=== PATIENT | female | born 1940 | race Caucasian/White ===

== ENCOUNTER 2024-06-18 13:43 | Observation (INO) ==
[~2024-06-18 13:43] MED LIST: NS 0.45% 1000 ml BAG 1,000 ML IV SCH; Naloxone 0.4 mg VIAL 0.4 mg/ml 1 ml VIAL IV PRN; Ondansetron 4 mg VIAL 2 MG/ML 2 ml VIAL IV PRN
[2024-06-18] MEDS ORDERED: Tranexamic Acid 1 GM/100ML BAG 2,000 MG/200 ML BAG IV ONE (13:54)
[2024-06-18] MEDS ORDERED: ceFAZolin 2 GM PREMIX 2 GM/50 ML BAG ONE (13:54)
[2024-06-18] MEDS: Acetaminophen IV 1 GM/100ML 1,000 MG/100 ML BAG IV ONE (14:20)
[2024-06-18] MEDS: Lactated Ringers 1000 ml BAG 1,000 ML IV SCH ×2 (14:20→20:46)
[2024-06-18] MEDS: Buffered Lidocaine 1% SYRIN 1 ml INTRADERM ONE (14:20)
[2024-06-18 14:23] LABS: Rapid COVID-19 Molecular Undetected (Undetected)
[2024-06-18] MEDS ORDERED: ROPIVACAINE 5 MG/ML 30 ML BTL (0.5%) ONE (14:34)
[2024-06-18] MEDS ORDERED: Rocuronium 50 mg VIAL 10 mg/ml 5 ml VIAL (50 mg) ONE (15:11)
[2024-06-18] MEDS ORDERED: Lidocaine 2% PF 5 ML VIAL ONE (15:16)
[2024-06-18] MEDS ORDERED: Dexamethasone IV 4 MG/ML VIAL 1 ml VIAL ONE (15:16)
[2024-06-18] MEDS ORDERED: Midazolam 2 mg/2 ml VIAL 1 mg/ml 2 ml VIAL (2 mg) ONE (15:16)
[2024-06-18] MEDS ORDERED: fentaNYL 250 mcg/5 ml 50 MCG/ML 5 ml VIAL (250 MCG) ONE (15:16)
[2024-06-18] MEDS ORDERED: Ondansetron 4 mg VIAL 2 MG/ML 2 ml VIAL ONE (15:16)
[2024-06-18] MEDS ORDERED: Propofol 10 MG/ML 20 ML BTL ONE (15:16)
[2024-06-18] MEDS ORDERED: Magnesium Hydroxide LIQ 30 ML UDC PO PRN (15:47)
[2024-06-18] MEDS ORDERED: Calcium Carb (TUMS) 500 mg CHEW TAB PO PRN (15:47)
[2024-06-18] MEDS ORDERED: Lactulose 30 ml UDC PO PRN (15:47)
[2024-06-18] MEDS ORDERED: Ondansetron ODT 4 mg TAB 4 MG TAB PO PRN (15:47)
[2024-06-18] MEDS ORDERED: Morphine 2 MG/ML SYRINGE IV PRN (15:47)
[2024-06-18] MEDS ORDERED: fentaNYL 100 mcg/2 ml 50 MCG/ML VIAL ONE ×2 (18:40→19:37)
[2024-06-18] MEDS: fentaNYL 100 mcg/2 ml 50 MCG/ML VIAL IV PRN (18:42)
[2024-06-18] MEDS: ceFAZolin 2 GM PREMIX 2 GM/50 ML BAG IV SCH (23:53)
[2024-06-18] MEDS: Magnesium Hydroxide LIQ 30 ML UDC PO SCH (23:54)
[2024-06-19] MEDS: Ondansetron 4 mg VIAL 2 MG/ML 2 ml VIAL IV PRN (03:15)
[2024-06-19 06:06] LABS: Hematocrit 32.5 % (35-45); Hemoglobin 11.2 g/dL (11.5-14.3); Platelet Count 217 10^3/uL (150-450)
[2024-06-19 06:40] LABS: Calcium 7.9 mg/dL (8.6-10.3); Creatinine, Serum 0.89 mg/dL (0.51-0.95); Potassium 4.2 mmol/L (3.5-5.0); eGFR CKD-EPI 64.7 (>60)
[2024-06-19] MEDS: Vitamin THERAPEUTIC TAB PO SCH (08:17)
[2024-06-19] MEDS: CMCS:Raloxifene 60 mg TAB (NF) PO SCH (08:20)
[2024-06-19] MEDS: Lactated Ringers 1000 ml BAG 500 ML IV ONE ×2 (10:58→15:34)
[2024-06-19] MEDS: Calcium Carb (TUMS) 500 mg CHEW TAB PO ONE (11:05)
[2024-06-19 16:29] VITALS: BP 109/65
== END 2024-06-19 16:50 | disposition home or self-care (01) ==
LOC: SSU 13:43 → OR 13:43
PROVIDERS: ADMIT Orthopaedic Surgery Adult Reconstructive Orthopaedic Surgery; ATTEND Orthopaedic Surgery Adult Reconstructive Orthopaedic Surgery